=== PATIENT | female | born 1990 | race Caucasian/White ===

== ENCOUNTER 2022-05-16 15:41 | Emergency (ER) | payer BC, SELFPAY ==
[2022-05-16 16:10] VITALS: BP 140/77; PULSE 86; RESP 18; TEMP 36.8; O2SAT 97; BMI 37.0
--- NOTE | 2022-05-16 16:39 | ED_ITS ---
HPI - Extremity Injury (Upper) General Time Seen by Provider: 16:40 Date Seen: 05/16/22 Chief Complaint: Extremity Pain/Injury, Upper Stated Complaint: Possible broken right hand Time Seen by Provider: 05/16/22 16:39 Source: patient and RN notes reviewed Mode of arrival: ambulatory Limitations: no limitations History of Present Illness HPI narrative: Patient is a 32-year-old female coming in with right 2nd and 3rd finger pain. She was moving a fixture at work with it slipping, causing crush type injury of the 2nd and 3rd fingers. It is the right 3rd PIP joint that hurts the most. She can move both fingers but there is some pain. She thinks the right 2nd finger is probably just more superficial. She has some bruising on the dorsal aspect of both of these fingers. She has normal sensation in the fingers. There are no open wounds. Nothing else was injured. MD complaint: injury to: right and finger Related Data Allergies Allergy/AdvReac Type Severity Reaction Status Date / Time No Known Drug Allergies Allergy Verified 05/16/22 16:10 Review of Systems Narrative: As per HPI PFSH PFSH Social History Smoking Status: Current every day smoker Do you use any of these nicotine containing products: Vaping Products Second hand tobacco smoke exposure: No How often do you have a drink containing alcohol: monthly or less How many standard drinks containing alcohol do you have on a typical day: 1 or 2 How often do you have six or more drinks on one occasion: Never AUDIT-C Alcohol total score: 1 Non-prescribed substance use: denies use service: No Exam Const: Vital Signs, click to edit/add: Vital Signs - 24 hr 05/16/22 16:10 Temperature 98.3 F Pulse Rate [Pulse Oximeter] 86 Respiratory Rate 18 Blood Pressure [Le ft Forearm] 140/77 H Pulse Oximetry 97 Oxygen Delivery Me thod Room Air Documenting provider has reviewed patient's vital signs: yes Common normals: no apparent distress, average body habitus, oriented x3, no limitations, healthy appearing, alert and well nourished Other: On inspection of the right hand, has some bruising over the dorsal aspect of the right 3rd PIP joint and proximally along the dorsal right 2nd it phalanx. She still has full range of motion of these fingers although somewhat slowly due to pain. Distal sensation is normal. There is some mild swelling in the area of the bruising. She does have full flexion extension. She describes the movement as a tight feeling. The metacarpophalangeal joints are uninvolved, no pain into the hand or wrist. There are no open wounds of these fingers. Neuro: Common normals: oriented x3 Sensorium/orientation: alert Course Course Hospital Course: We will obtain imaging to rule out underlying fracture. Hopefully this is just soft tissue contusion/ecchymosis. Reevaluation(s) Reevaluation #1: Reviewed negative x-rays for fracture. Discussed conservative management for contusion/bruising. She will be discharged to home. Time: 17:29 Vital Signs Vital signs: Initial Vital Signs Temperature 98.3 F 05/16/22 16:10 Temperature Source Temporal Artery Scan 05/16/22 16:10 Pulse Rate 86 05/16/22 16:10 Pulse Rhythm 05/16/22 16:10 Respiratory Rate 18 05/16/22 16:10 Blood Pressure 140/77 H 05/16/22 16:10 Blood Pressure Mean 98 05/16/22 16:10 Blood Pressure Position Supine 05/16/22 16:10 Pulse Oximetry 97 05/16/22 16:10 Oxygen Delivery Method 05/16/22 16:10 Vital Signs Temperature 98.3 F 05/16/22 16:10 Pulse Rate 86 05/16/22 16:10 Respiratory Rate 18 05/16/22 16:10 Blood Pressure 140/77 H 05/16/22 16:10 Pulse Oximetry 97 05/16/22 16:10 Oxygen Delivery Method 05/16/22 16:10 Temperature 98.3 F 05/16/22 16:10 Pulse Rate 86 05/16/22 16:10 Respiratory Rate 18 05/16/22 16:10 Blood Pressure 140/77 H 05/16/22 16:10 Pulse Oximetry 97 05/16/22 16:10 Oxygen Delivery Method 05/16/22 16:10 MDM - Extremity Injury (Upper) Imaging Data X-ray right hand: Attestation: I have reviewed the pertinent imaging results. My impression: I do not appreciate any fracture on my preliminary read of these images. Radiologist's impression: Patient: ANTONIETA HUNT Facility:?[facility] Patient ID:?[id number] Site Patient ID:?[id number]. Site :?[id number] Study:?XRay Extremity Right Hand 3 views-05/16/2022 4:56:18 PM Ordering Physician:Rocco Jauregui Final Report: Indication: Injury Technique: A total of three views of the right hand were acquired. Comparison: None Findings: Bones: Alignment is normal. No fractures or bone lesions. Joint spaces: Unremarkable. Soft tissues: Unremarkable. Impression: Normal plain film examination of the right hand. Dictated by Rayo Zayas MD @ 05/16/2022 5:10:49 PM (Electronic Signature) Critical Care Time Critical Care Time Critical Care Time: No Discharge Plan Discharge Clinical Impression: Contusion of middle finger, Contusion of right index finger Condition: Stable Instructions: Contusion in Adults (ED) Additional Instructions: Ice/elevate fingers as needed for decreasing swelling/bruising/pain. Tylenol/ibuprofen as needed for pain, follow bottle directions for dosing. Need to be re-evaluated in clinic or by orthopedics if your pain and symptoms are not improving over the next 1-2 weeks. Activity Level: Activity as Tolerated Stand Alone Forms: My[facility] Info Instructions
--- NOTE | 2022-05-16 16:43 | CRLHL7_ITS ---
For Patients: As a result of the Cures Act, medical imaging exams and procedure reports are released immediately into your electronic medical record. You may view this report before your referring provider. If you have questions, please contact your health care provider. Indication: Injury Technique: A total of three views of the right hand were acquired. Comparison: None Findings: Bones: Alignment is normal. No fractures or bone lesions. Joint spaces: Unremarkable. Soft tissues: Unremarkable. Impression: Normal plain film examination of the right hand. Dictated by Rayo Zayas MD @ 05/16/2022 5:10:49 PM (Electronically Signed)
== END 2022-05-16 17:50 | disposition home or self-care (01) ==
PROVIDERS: Emergency Provider Family Medicine
DX: S60.031A Contusion of right middle finger without damage to nail, initial encounter (principal); S60.021A Contusion of right index finger without damage to nail, initial encounter; W23.0XXA Caught, crushed, jammed, or pinched between moving objects, initial encounter; Y93.9 Activity, unspecified; Y92.9 Unspecified place or not applicable; Y99.0 Civilian activity done for income or pay
CPT/HCPCS: 73130; 99283